=== PATIENT | male | born 1985 | race Caucasian/White ===

== ENCOUNTER → 2020-06-27 08:01 | Outpatient (BNVA) | payer OTHER, SELFPAY | PROVIDERS: Visit Provider Physician Assistant Medical | DX: S62.630A Displaced fracture of distal phalanx of right index finger, initial encounter for closed fracture (principal); W31.9XXA Contact with unspecified machinery, initial encounter | CPT/HCPCS: 73140; 99203 ==

== ENCOUNTER → 2020-06-29 11:18 | Outpatient (BNVA) | payer OTHER, SELFPAY | PROVIDERS: Visit Provider Physician Assistant Medical | DX: S62.630A Displaced fracture of distal phalanx of right index finger, initial encounter for closed fracture (principal); W31.9XXA Contact with unspecified machinery, initial encounter | CPT/HCPCS: 99213 ==

== ENCOUNTER → 2020-07-06 08:50 | Outpatient (BNVA) | payer OTHER, SELFPAY | PROVIDERS: Visit Provider Physician Assistant Medical | DX: S62.630A Displaced fracture of distal phalanx of right index finger, initial encounter for closed fracture (principal); S60.121A Contusion of right index finger with damage to nail, initial encounter; W31.9XXA Contact with unspecified machinery, initial encounter | CPT/HCPCS: 99213 ==

== ENCOUNTER 2020-08-22 12:49 | Outpatient (REF) | payer MEDICAID, SELFPAY ==
[2020-08-23 09:22] LABS: SARS COV2 PCR INHOUSE POSITIVE (Negative)
== END 2020-08-22 12:50 | disposition home or self-care (01) ==
LOC: HO.LAB 12:49
PROVIDERS: Visit Provider Internal Medicine
DX: Z20.822 Contact with and (suspected) exposure to COVID-19 (principal)
CPT/HCPCS: C9803; U0003

== ENCOUNTER 2021-02-04 17:35 | Emergency (ER) | payer OTHER, MEDICAID, SELFPAY ==
--- NOTE | ~2021-02-04 | CT_ITS ---
EXAMINATION: CT HEAD WITHOUT CONTRAST CLINICAL INFORMATION: Head trauma COMPARISON: None. TECHNIQUE: Contiguous axial imaging was performed from the skull base to vertex without intravenous administration of contrast. Coronal and sagittal reformatted images are performed at the CT scanner. [This CT examination was performed using dose optimization techniques as appropriate, variously including the following: *Automated exposure control *Adjustment of mA and/or kV according to patient size (this includes techniques or standardized protocols for targeted exams where dose is matched to indication/reason for exam; i.e. extremities or head) *Use of iterative reconstruction technique] DLP: 710 mGy-cm. FINDINGS: There is no evidence of acute intracranial hemorrhage or territorial infarction. No abnormal mass-effect or midline shift is seen. Mcfarland to white matter differentiation is well preserved. No extra-axial fluid collections are identified. The ventricles are normal in size. There is no abnormal attenuation within the brain parenchyma. There is no osseous abnormality. The mastoid air cells and visualized portions of the paranasal sinuses are well-aerated. CT/CT head/brain wo con IMPRESSION: No acute intracranial pathology.
[2021-02-04 17:41] VITALS: BP 123/66; PULSE 77; RESP 16; TEMP 36.6; O2SAT 98; BMI 27.4
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
== END 2021-02-04 19:29 | disposition home or self-care (01) ==
PROVIDERS: Emergency Provider Internal Medicine
DX: S09.90XA Unspecified injury of head, initial encounter (principal); G44.309 Post-traumatic headache, unspecified, not intractable; M54.5 Low back pain; V43.52XA Car driver injured in collision with other type car in traffic accident, initial encounter; Y93.9 Activity, unspecified; Y92.410 Unspecified street and highway as the place of occurrence of the external cause; Y99.9 Unspecified external cause status; Z79.899 Other long term (current) drug therapy
CPT/HCPCS: 70450; 99283; 99284

== ENCOUNTER 2021-03-13 12:59 | Outpatient (REF) | payer MEDICAID, SELFPAY | END 2021-03-13 13:00 | disposition home or self-care (01) | LOC: HO.LAB 12:59 | PROVIDERS: Visit Provider Internal Medicine | DX: Z20.822 Contact with and (suspected) exposure to COVID-19 (principal) | CPT/HCPCS: C9803; U0003; U0005 ==

== ENCOUNTER 2022-08-16 23:03 | Emergency (ER) | payer MEDICAID, SELFPAY ==
--- NOTE | ~2022-08-16 | XR_ITS ---
EXAMINATION: XR CHEST CLINICAL INFORMATION: Left-sided chest pain COMPARISON: None available. TECHNIQUE: 2 views of the chest were obtained. FINDINGS: Normal symmetric lung volumes. No parenchymal consolidation. No pleural effusion. No pneumothorax. Cardiomediastinal silhouette and pulmonary vascularity are within normal limits. No acute osseous abnormalities. XR/XR chest 2V IMPRESSION: Clear lungs
[2022-08-16 23:22] VITALS: BP 110/58; PULSE 68; RESP 18; TEMP 36.9; O2SAT 98; BMI 30.7
[2022-08-16 23:54] LABS: MANUAL DIFF FLAG NO
[2022-08-16 23:55] LABS: Basophils Absolute Auto 0.1 X10*3/uL (0.0-0.2); Basophils Percent Auto 0.7 % (0-2); Eosinophils Absolute Auto 0.4 X10*3/uL (0.0-0.4); Eosinophils Percent Auto 3.7 % (0-4); Hematocrit 40.2 % (42.0-52.0); Hemoglobin 13.6 g/dl (14.0-18.0); Imm Gran Abs Auto 0.03 X10*3/uL (0.00-0.03); Imm Gran Pct Auto 0.3 % (0.0-0.4); Lymphocytes Absolute Auto 3.6 X10*3/uL (1.2-4.9); Mean Corpuscular HGB Conc 33.8 g/dl (31.0-36.0); Mean Corpuscular Hemoglobin 28.7 pg (27.0-33.0); Mean Corpuscular Volume 84.8 fL (80.0-98.0); Mean Platelet Volume 11.1 fL (9.4-12.4); Monocytes Absolute Auto 1.4 X10*3/uL (0.1-1.2); Monocytes Percent Auto 12.5 % (2-11); Neutrophils Percent Auto 51.8 % (45-73); Platelet Count 231 X10*3/uL (160-400); Red Blood Count 4.74 X10*6/uL (4.60-5.80); Red Cell Distribution Width 11.9 % (11.0-16.0); White Blood Count 11.6 X10*3/uL (4.8-10.8)
[2022-08-16 23:58] VITALS: BP 114/58; PULSE 67; RESP 20; TEMP 36.9; O2SAT 97
--- NOTE | 2022-08-16 23:58 | ECG_ITS ---
Test Reason : CHEST PAIN Blood Pressure : / mmHG Vent. Rate : 070 BPM Atrial Rate : 070 BPM P-R Int : 180 ms QRS Dur : 082 ms QT Int : 378 ms P-R-T Axes : 074 037 021 degrees QTc Int : 408 ms Normal sinus rhythm Normal ECG When compared to the previous EKG of No significant changes seen Referred By: Pete Uriostegui Electronically Signed By:Darrell Renee
--- NOTE | 2022-08-16 23:58 | ED.CHESTPAIN ---
HPI - Chest Pain General Chief Complaint: Chest Pain Stated Complaint: Chest pain Time Seen by Provider: 08/16/22 23:44 Source: patient Mode of arrival: ambulatory Limitations: no limitations History of Present Illness complaint: chest pain Onset (ago): day(s) (1) Timing of current episode: constant Prior episodes: No Onset: during rest Pain location: left chest Pain radiation: none Severity: severe Pain scale (0-10): 9 Quality: sharp Relieving factors: sitting upright Exacerbating factors: other (lying down) Treatment prior to arrival: none Risk Factors Coronary artery disease risk factors: none Thoracic aortic dissection risk factors: none Related Data Previous Rx's Medication Instructions Recorded acetaminophen 500 mg tablet 500 mg PO Q6H PRN pain or fever 02/04/21 (Tylenol Extra Strength) #20 tabs cyclobenzaprine 5 mg tablet 5 mg PO Q8H PRN pain (scale score 02/04/21 7-10) 5 days #14 tabs lidocaine 5 % topical patch 1 patch topical DAILY PRN pain #30 02/04/21 (Lidoderm) ea naproxen 500 mg tablet 500 mg PO BID PRN pain 10 days #20 02/04/21 tabs Allergies Allergy/AdvReac Type Severity Reaction Status Date / Time No Known Allergies Allergy Unverified 02/03/20 19:16 [No Known Allergies*] [facility] Social History Social History Alcohol intake: never Smoked in Last 30 Days: No Use of substances other than those prescribed or required for medical reasons: No Advance Directives: No Advance Directives Information Provided: No Physical Exam Vital Signs: Vital Signs: Last Vital Signs Temp 98.4 F 08/16/22 23:58 Pulse 67 08/16/22 23:58 Resp 20 08/16/22 23:58 BP 114/58 L 08/16/22 23:58 Pulse Ox 97 08/16/22 23:58 O2 Del Method Room Air 08/16/22 23:58 BMI result Body Mass Index 30.7 GEN: Well developed, no acute distress, alert, oriented HEENT: Normocephalic, atraumatic, normal external ears, nose appears normal, no oropharyngeal edema or exudates Eyes: Normal to appearance Neck: Supple, no lymphadenopathy Respiratory: Talks in complete sentences, no respiratory distress, clear to auscultation bilaterally Cardiovascular: Regular rate and rhythm, no murmurs rubs or gallops Abdomen: Soft, nontender, nondistended, no guarding, no rebound Back: No CVA tenderness Extremities: No clubbing cyanosis or edema Neurologic: No focal neurologic deficits, cranial nerves 2-12 intact, strength is 5/5 bilaterally, gait normal Skin: No rash Chest Wall tenderness to palpation left midclavicular line Course Course Course Narrative: 37-year-old male presents with left-sided reproducible chest wall tenderness. This is most likely costochondritis. Patient will have chest x-ray to rule out possible other issues such as pneumothorax, pleural effusion, pneumonia. Will order laboratory analysis. Troponin if negative is highly unlikely to be acute coronary syndrome given the duration of his symptoms. Patient has no PE criteria. There is no evidence of DVT. Other possibilities would include pericarditis myocarditis. Will obtain an EKG to rule out diffuse CO depressions or ST elevations. Will provide patient with Toradol Reevaluation(s) Reevaluation #1: PERC Rule for Pulmonary Embolism from [employer] on 08/17/2022 All calculations should be rechecked by clinician prior to use RESULT SUMMARY: 0 criteria No need for further workup, as <2% chance of PE. If no criteria are positive and clinician?s pre-test probability is <15%, PERC Rule criteria are satisfied. INPUTS: Age >=0 ?> 0 = No HR >=00 ?> 0 = No O? sat on room air ?> 0 = No Unilateral leg swelling ?> 0 = No Hemoptysis ?> 0 = No Recent surgery or trauma ?> 0 = No Prior PE or DVT ?> 0 = No Hormone use ?> 0 = No Time: 00:02 Reevaluation #2: Feeling much better. We discussed all results. All questions were addressed and answered. Time: 00:46 Medical Decision Making Medical Decision Making [facility] Narrative: 37-year-old male presents with left-sided reproducible chest wall tenderness. This is most likely costochondritis. Patient will have chest x-ray to rule out possible other issues such as pneumothorax, pleural effusion, pneumonia. Will order laboratory analysis. Troponin if negative is highly unlikely to be acute coronary syndrome given the duration of his symptoms. Patient has no PE criteria. There is no evidence of DVT. Other possibilities would include pericarditis myocarditis. Will obtain an EKG to rule out diffuse CO depressions or ST elevations. Will provide patient with [place] Differential Diagnosis Differential Diagnoses: The differential diagnosis associated with the presentation includes (Costochondritis, chest wall pain, PE, pericarditis, myocarditis, acute coronary syndrome, angina, GERD, esophageal spasm) Costochondritis Admission/Observation Consideration of admission/observation: Escalation of care including admission/observation considered Lab Data MDM Lab Attestation statement: I reviewed the patient's lab results. 08/16/22 23:42 08/16/22 23:42 Labs: Lab Results 08/16/22 08/16/22 08/16/22 Range/Units 23:42 23:42 23:42 WBC 11.6 H (4.8-10.8) X10*3/uL RBC 4.74 (4.60-5.80) X10*6/uL Hgb 13.6 L (14.0-18.0) g/dl Hct 40.2 L (42.0-52.0) % MCV 84.8 (80.0-98.0) fL MCH 28.7 (27.0-33.0) pg MCHC 33.8 (31.0-36.0) g/dl RDW 11.9 (11.0-16.0) % Plt Count 231 (160-400) X10*3/uL MPV 11.1 (9.4-12.4) fL Immature Gran % (Auto) 0.3 (0.0-0.4) % Neut % (Auto) 51.8 (45-73) % Lymph % (Auto) 31.0 (20-40) % Person % (Auto) 12.5 H (2-11) % Eos % (Auto) 3.7 (0-4) % Baso % (Auto) 0.7 (0-2) % Lymph # (Auto) 3.6 (1.2-4.9) X10*3/uL Person # (Auto) 1.4 H (0.1-1.2) X10*3/uL Eos # (Auto) 0.4 (0.0-0.4) X10*3/uL Baso # (Auto) 0.1 (0.0-0.2) X10*3/uL Abs Immat Gran (auto) 0.03 (0.00-0.03) X10*3/uL Absolute Neuts (auto) 6.0 (2.0-8.3) x10*3/uL Absolute Nucleated RBC 0.000 (0.0-0.012) X10*3/uL Nucleated RBC % (auto) 0.0 (0.0-0.2) /100WBC Sodium 141 (135-145) mmol/L Potassium 3.9 (3.3-5.1) mmol/L Chloride 109 H (96-108) mmol/L Carbon Dioxide 24 (22-29) mmol/L Anion Gap 12 (12-20) BUN 22 H (9-16) mg/dL Creatinine 1.02 (0.5-1.4) mg/dL Estim Creat Clear Calc 94.3 Estimated GFR > 60 Random Glucose 85 (60-115) mg/dL Calcium 8.8 (8.4-10.2) mg/dL Total Bilirubin 0.5 (0.0-1.0) mg/dL AST 22 (5-37) U/L ALT 24 (0-40) U/L Alkaline Phosphatase 91 (39-117) U/L Troponin I High Sens < 3.5 (<3.5-35.0) ng/L Total Protein 6.9 (6.5-8.0) g/dL Albumin 3.9 (3.5-5.0) g/dL Independent Interpretation I performed an independent interpretation of an: EKG and Plain X-Ray (No acute cardiopulmonary disease) Radiology Impression Discussion of test interpretation with radiology: I have reviewed the radiologist's reading. ( XR/XR chest 2V IMPRESSION: Clear lungs Dictated By:Jhno Dave MDSigned By:<Electronically signed by Jhon Dave MD in [place]>08/17/2226) Tests considered The following testing was considered but not selected: CT chest Prescription Management I considered prescription management with: Pain Medication Discharge Plan Discharge Clinical Impression: Costalchondritis Patient Disposition: Home, Self-Care Instructions: Costochondritis (ED) Prescriptions: Continued naproxen 500 mg tablet 500 mg PO BID PRN (Reason: pain) 10 Days Qty: 20 0RF No Action acetaminophen [Tylenol Extra Strength] 500 mg tablet 500 mg PO Q6H PRN (Reason: pain or fever) Qty: 20 0RF lidocaine [Lidoderm] 5 % adhesive patch,medicated 1 patch topical DAILY MDD remove after 12 hours PRN (Reason: pain) Qty: 30 0RF Rx Instructions: leave on most painful area for up to 12 hrs cyclobenzaprine 5 mg tablet 5 mg PO Q8H PRN (Reason: pain (scale score 7-10)) 5 Days Qty: 14 0RF Referrals: Physician,Unknown J [Primary Care Provider] -
--- NOTE | 2022-08-17 00:01 | PC.NURSE ---
aox4, ambulates ind/safely, at bedside c/o L sided chest pain that worsens with movement
[2022-08-17 00:13] LABS: Alanine Aminotransferase 24 U/L (0-40); Albumin Level 3.9 g/dL (3.5-5.0); Alkaline Phosphatase 91 U/L (39-117); Anion Gap 12 (12-20); Aspartate Amino Transferase 22 U/L (5-37); Bilirubin Total 0.5 mg/dL (0.0-1.0); Blood Urea Nitrogen 22 mg/dL (9-16); Calcium 8.8 mg/dL (8.4-10.2); Carbon Dioxide 24 mmol/L (22-29); Chloride 109 mmol/L (96-108); Creatinine Clr Calc Pharmacy 94.3; Estimated Glomerular Filt Rate > 60; Glucose Random 85 mg/dL (60-115); Potassium 3.9 mmol/L (3.3-5.1); Sodium 141 mmol/L (135-145); Total Protein 6.9 g/dL (6.5-8.0)
[2022-08-17 00:18] LABS: Troponin-I High Sensitivity < 3.5 ng/L (<3.5-35.0)
--- NOTE | 2022-08-17 00:51 | PC.NURSE ---
Discharge instructions given/explained to pt all of pt's questions answered ambulates safely/independently, no apparent distress no respiratory distress, no sob, able to speak in full sentences
== END 2022-08-17 00:51 | disposition home or self-care (01) ==
PROVIDERS: Emergency Provider Emergency Medicine
DX: M94.0 Chondrocostal junction syndrome [Tietze] (principal); Z79.899 Other long term (current) drug therapy
CPT/HCPCS: 36415; 71046; 80053; 84484; 85025; 93005; 99283; 99285

== ENCOUNTER 2022-08-19 21:07 | Emergency (ER) | payer MEDICAID, SELFPAY ==
[2022-08-19 21:13] VITALS: BP 144/87; PULSE 84; RESP 18; TEMP 36.5; O2SAT 99; BMI 30.2
--- NOTE | 2022-08-19 21:18 | ECG_ITS ---
Test Reason : dizzness Blood Pressure : / mmHG Vent. Rate : 075 BPM Atrial Rate : 075 BPM P-R Int : 146 ms QRS Dur : 080 ms QT Int : 362 ms P-R-T Axes : 063 030 044 degrees QTc Int : 404 ms Normal sinus rhythm Normal ECG When compared with ECG of 16-AUG-2022 23:10, No significant change was found Referred By: Generic ED Physician Electronically Signed By:Darrell Renee
[2022-08-19 21:51] LABS: Basophils Absolute Auto 0.1 X10*3/uL (0.0-0.2); Basophils Percent Auto 0.5 % (0-2); Eosinophils Absolute Auto 0.1 X10*3/uL (0.0-0.4); Eosinophils Percent Auto 0.7 % (0-4); Hematocrit 42.2 % (42.0-52.0); Hemoglobin 14.3 g/dl (14.0-18.0); Imm Gran Abs Auto 0.06 X10*3/uL (0.00-0.03); Imm Gran Pct Auto 0.4 % (0.0-0.4); Lymphocytes Absolute Auto 2.7 X10*3/uL (1.2-4.9); Lymphocytes Percent Auto 20.1 % (20-40); MANUAL DIFF FLAG NO; Mean Corpuscular HGB Conc 33.9 g/dl (31.0-36.0); Mean Corpuscular Hemoglobin 28.8 pg (27.0-33.0); Mean Corpuscular Volume 85.1 fL (80.0-98.0); Mean Platelet Volume 11.3 fL (9.4-12.4); Monocytes Absolute Auto 1.1 X10*3/uL (0.1-1.2); Monocytes Percent Auto 7.8 % (2-11); Neutrophils Absolute Auto 9.6 x10*3/uL (2.0-8.3); Neutrophils Percent Auto 70.5 % (45-73); Platelet Count 264 X10*3/uL (160-400); Red Blood Count 4.96 X10*6/uL (4.60-5.80); Red Cell Distribution Width 11.9 % (11.0-16.0); White Blood Count 13.7 X10*3/uL (4.8-10.8)
[2022-08-19 22:07] LABS: Alanine Aminotransferase 23 U/L (0-40); Albumin Level 4.4 g/dL (3.5-5.0); Alkaline Phosphatase 92 U/L (39-117); Anion Gap 14 (12-20); Aspartate Amino Transferase 23 U/L (5-37); Bilirubin Total 0.6 mg/dL (0.0-1.0); Blood Urea Nitrogen 14 mg/dL (9-16); Calcium 9.3 mg/dL (8.4-10.2); Carbon Dioxide 25 mmol/L (22-29); Chloride 105 mmol/L (96-108); Creatinine Clr Calc Pharmacy 101.6; Estimated Glomerular Filt Rate > 60; Glucose Random 95 mg/dL (60-115); Sodium 140 mmol/L (135-145); Total Protein 7.5 g/dL (6.5-8.0)
[2022-08-19 22:28] LABS: Influenza A PCR NEGATIVE (Negative); Influenza B PCR NEGATIVE (Negative); Resp Syncy Virus RNA Qual PCR NEGATIVE (Negative); SARS COV2 PCR INHOUSE NEGATIVE (Negative)
[2022-08-19 22:34] LABS: Troponin-I High Sensitivity < 3.5 ng/L (<3.5-35.0)
--- NOTE | 2022-08-19 23:17 | ED_ITS ---
HPI - Dizziness General Chief Complaint: Dizziness Stated Complaint: dizziness Time Seen by Provider: 08/19/22 22:18 Source: patient Mode of arrival: ambulatory Limitations: no limitations History of Present Illness HPI Narrative: Patient came here with sudden onset of dizziness with sense of movement since noon time felt off-balance vomited to 3 times also had chest pain 2 days ago when he was seen here in the hospital after drinking Red Bull no chest pain at this time no palpitation no syncope episode no headache does have tinnitus on the right side dizziness gets worse when turn his head to the right side no headache Related Data Previous Rx's Medication Instructions Recorded acetaminophen 500 mg tablet 500 mg PO Q6H PRN pain or fever 02/04/21 (Tylenol Extra Strength) #20 tabs cyclobenzaprine 5 mg tablet 5 mg PO Q8H PRN pain (scale score 02/04/21 7-10) 5 days #14 tabs lidocaine 5 % topical patch 1 patch topical DAILY PRN pain #30 02/04/21 (Lidoderm) ea naproxen 500 mg tablet 500 mg PO BID PRN pain 10 days #20 02/04/21 tabs meclizine 25 mg tablet 25 mg PO TID PRN dizziness #20 tabs 08/20/22 Allergies Allergy/AdvReac Type Severity Reaction Status Date / Time No Known Allergies Allergy Unverified 02/03/20 19:16 [No Known Allergies*] Review of Systems Review of Systems: Yes all other systems are reviewed and are negative [facility] Social History Social History Alcohol intake: never Advance Directives: No Advance Directives Information Provided: Yes Physical Exam Vital Signs: Vital Signs: Last Vital Signs Temp 97.7 F 08/19/22 21:13 Pulse 84 08/19/22 21:13 Resp 18 08/19/22 21:13 BP 144/87 H 08/19/22 21:13 Pulse Ox 99 08/19/22 21:13 O2 Del Method Room Air 08/19/22 21:13 BMI result Body Mass Index 30.2 Appearance: Alert. Oriented X3. No acute distress. Eyes: PERRLA, No Nystagmus ENT: Pharynx normal. Oral Mucosa moist Neck: Normal inspection. Neck supple. CVS: Normal heart rate and rhythm. Pulses normal. Respiratory: No respiratory distress. Equal air entry bilateral, no wheezing/rales/rhonchi Abdomen: Soft and nontender. Bowel sounds are present, no mass palpable, no CVA tenderness Skin: Skin warm and dry. Normal skin color. Normal skin turgor. Extremities: No lower extremity edema. No calf tenderness Neuro: Oriented X 3. No motor deficit. No sensory deficit.No cerebellar signs , cranial nerves II-XII intact Medications Administered Discontinued Medications Generic Name Dose Route Start Last Admin Trade Name Nolanq PRN Reason Stop Dose Admin Lorazepam 1 mg 08/19/22 23:46 08/20/22 00:11 Lorazepam 1 Mg Tablet PO 08/19/22 23:47 1 mg ONCE ONE Administration Meclizine HCl 50 mg 08/19/22 23:46 08/20/22 00:10 Meclizine Hcl 25 Mg Tablet PO 08/19/22 23:47 50 mg ONCE ONE Administration Medical Decision Making Medical Decision Making [facility] Narrative: Patient clinically with benign positional vertigo no signs of center involvement symptoms improved after Ativan and meclizine patient able to ambulate in the ER in steady gait Lab Data [facility] Lab Attestation statement: I reviewed the patient's lab results. 08/19/22 21:37 08/19/22 21:37 Labs: Lab Results 08/19/22 08/19/22 08/19/22 Range/Units 21:34 21:37 21:37 WBC 13.7 H (4.8-10.8) X10*3/uL RBC 4.96 (4.60-5.80) X10*6/uL Hgb 14.3 (14.0-18.0) g/dl Hct 42.2 (42.0-52.0) % MCV 85.1 (80.0-98.0) fL MCH 28.8 (27.0-33.0) pg MCHC 33.9 (31.0-36.0) g/dl RDW 11.9 (11.0-16.0) % Plt Count 264 (160-400) X10*3/uL MPV 11.3 (9.4-12.4) fL Immature Gran % (Auto) 0.4 (0.0-0.4) % Neut % (Auto) 70.5 (45-73) % Lymph % (Auto) 20.1 (20-40) % [place] % (Auto) 7.8 (2-11) % Eos % (Auto) 0.7 (0-4) % Baso % (Auto) 0.5 (0-2) % Lymph # (Auto) 2.7 (1.2-4.9) X10*3/uL [place] # (Auto) 1.1 (0.1-1.2) X10*3/uL Eos # (Auto) 0.1 (0.0-0.4) X10*3/uL Baso # (Auto) 0.1 (0.0-0.2) X10*3/uL Abs Immat Gran (auto) 0.06 H (0.00-0.03) X10*3/uL Absolute Neuts (auto) 9.6 H (2.0-8.3) x10*3/uL Absolute Nucleated RBC 0.000 (0.0-0.012) X10*3/uL Nucleated RBC % (auto) 0.0 (0.0-0.2) /100WBC Sodium 140 (135-145) mmol/L Potassium 4.0 (3.3-5.1) mmol/L Chloride 105 (96-108) mmol/L Carbon Dioxide 25 (22-29) mmol/L Anion Gap 14 (12-20) BUN 14 (9-16) mg/dL Creatinine 0.94 (0.5-1.4) mg/dL Estim Creat Clear Calc 101.6 Estimated GFR > 60 Random Glucose 95 (60-115) mg/dL Calcium 9.3 (8.4-10.2) mg/dL Total Bilirubin 0.6 (0.0-1.0) mg/dL AST 23 (5-37) U/L ALT 23 (0-40) U/L Alkaline Phosphatase 92 (39-117) U/L Troponin I High Sens (<3.5-35.0) ng/L Total Protein 7.5 (6.5-8.0) g/dL Albumin 4.4 (3.5-5.0) g/dL Influenza Type A (PCR) NEGATIVE (Negative) Influenza Type B (PCR) NEGATIVE (Negative) RSV RNA Qual (PCR) NEGATIVE (Negative) SARS-CoV-2 RNA (RT-PCR) NEGATIVE (Negative) 08/19/22 Range/Units 21:37 WBC (4.8-10.8) X10*3/uL RBC (4.60-5.80) X10*6/uL Hgb (14.0-18.0) g/dl Hct (42.0-52.0) % MCV (80.0-98.0) fL MCH (27.0-33.0) pg MCHC (31.0-36.0) g/dl RDW (11.0-16.0) % Plt Count (160-400) X10*3/uL MPV (9.4-12.4) fL Immature Gran % (Auto) (0.0-0.4) % Neut % (Auto) (45-73) % Lymph % (Auto) (20-40) % [place] % (Auto) (2-11) % Eos % (Auto) (0-4) % Baso % (Auto) (0-2) % Lymph # (Auto) (1.2-4.9) X10*3/uL [place] # (Auto) (0.1-1.2) X10*3/uL Eos # (Auto) (0.0-0.4) X10*3/uL Baso # (Auto) (0.0-0.2) X10*3/uL Abs Immat Gran (auto) (0.00-0.03) X10*3/uL Absolute Neuts (auto) (2.0-8.3) x10*3/uL Absolute Nucleated RBC (0.0-0.012) X10*3/uL Nucleated RBC % (auto) (0.0-0.2) /100WBC Sodium (135-145) mmol/L Potassium (3.3-5.1) mmol/L Chloride (96-108) mmol/L Carbon Dioxide (22-29) mmol/L Anion Gap (12-20) BUN (9-16) mg/dL Creatinine (0.5-1.4) mg/dL Estim Creat Clear Calc Estimated GFR Random Glucose (60-115) mg/dL Calcium (8.4-10.2) mg/dL Total Bilirubin (0.0-1.0) mg/dL AST (5-37) U/L ALT (0-40) U/L Alkaline Phosphatase (39-117) U/L Troponin I High Sens < 3.5 (<3.5-35.0) ng/L Total Protein (6.5-8.0) g/dL Albumin (3.5-5.0) g/dL Influenza Type A (PCR) (Negative) Influenza Type B (PCR) (Negative) RSV RNA Qual (PCR) (Negative) SARS-CoV-2 RNA (RT-PCR) (Negative) Independent Interpretation I performed an independent interpretation of an: EKG Interpretation: Normal sinus rhythm heart rate 75 beats per minute normal intervals normal axis impression normal EKG Discharge Plan Discharge Clinical Impression: Benign paroxysmal positional vertigo Patient Disposition: Home, Self-Care Instructions: Benign Paroxysmal Positional Vertigo (ED) Additional Instructions: Care and cautions as advised Medicine for dizziness as prescribed Follow up with PCP as needed Prescriptions: New meclizine 25 mg tablet 25 mg PO TID PRN (Reason: dizziness) Qty: 20 0RF No Action acetaminophen [Tylenol Extra Strength] 500 mg tablet 500 mg PO Q6H PRN (Reason: pain or fever) Qty: 20 0RF lidocaine [Lidoderm] 5 % adhesive patch,medicated 1 patch topical DAILY MDD remove after 12 hours PRN (Reason: pain) Qty: 30 0RF Rx Instructions: leave on most painful area for up to 12 hrs naproxen 500 mg tablet 500 mg PO BID PRN (Reason: pain) 10 Days Qty: 20 0RF cyclobenzaprine 5 mg tablet 5 mg PO Q8H PRN (Reason: pain (scale score 7-10)) 5 Days Qty: 14 0RF Stand Alone Forms: Work/School Release
[2022-08-20] MEDS: Meclizine HCl 25 MG TABLET 50 MG PO (00:10)
[2022-08-20] MEDS: LORazepam 1 MG TABLET PO (00:11)
[2022-08-20 00:48] VITALS: BP 115/80; PULSE 69; RESP 16; TEMP 36.8; O2SAT 98
--- NOTE | 2022-08-20 00:53 | PC.NURSE ---
Pt. reports relief with the meclizine.
== END 2022-08-20 00:54 | disposition home or self-care (01) ==
PROVIDERS: Emergency Provider Internal Medicine
DX: H81.13 Benign paroxysmal vertigo, bilateral (principal); Z20.822 Contact with and (suspected) exposure to COVID-19; Z20.828 Contact with and (suspected) exposure to other viral communicable diseases; Z79.899 Other long term (current) drug therapy
CPT/HCPCS: 0241U; 80053; 84484; 85025; 93005; 99283; 99284

== ENCOUNTER 2023-10-25 13:08 | Emergency (ER) | payer MEDICAID, SELFPAY ==
[2023-10-25 14:02] VITALS: BP 123/69; PULSE 72; RESP 16; TEMP 36.6; O2SAT 97; BMI 27.5
--- NOTE | 2023-10-25 14:03 | ED_ITS ---
HPI - Back Pain/Injury General Chief Complaint: Back Pain/Injury Stated Complaint: back pain Time Seen by Provider: 10/25/23 14:07 Source: patient Mode of arrival: ambulatory Limitations: no limitations History of Present Illness ED Provider: Dick Soto PA-C HPI Narrative: 38-year-old [place] Islander-speaking male with no medical history presents to the ER for evaluation of diffuse lower back pain for the last 1 month. Patient states he does heavy lifting at work which makes the pain worse. Pain is constant, worse with movement. It does not radiate. No urinary symptoms or trouble having bowel movements. No numbness or weakness in his legs. He has not been taking any medications for the pain. MD elicited complaint: back pain Onset (ago): month(s) (1) Timing: progressively worsening Similar Symptoms Previously: Yes Quality: aching and spasming Location: right lower back and left lower back Radiation: none Exacerbating factors: movement Relieving factors: immobilization and supine Context: while lifting, turning/twisting and bending Associated symptoms: denies other symptoms Work related injury: Yes Related Data Previous Rx's ?Medication ?Instructions ?Recorded acetaminophen 500 mg tablet 500 mg PO Q6H PRN pain or fever 02/04/21 (Tylenol Extra Strength) #20 tabs cyclobenzaprine 5 mg tablet 5 mg PO Q8H PRN pain (scale score 02/04/21 7-10) 5 days #14 tabs lidocaine 5 % topical patch 1 patch topical DAILY PRN pain #30 02/04/21 (Lidoderm) ea naproxen 500 mg tablet 500 mg PO BID PRN pain 10 days #20 02/04/21 tabs meclizine 25 mg tablet 25 mg PO TID PRN dizziness #20 tabs 08/20/22 cyclobenzaprine 10 mg tablet 10 mg PO TID PRN muscle spasm #14 10/25/23 tabs ibuprofen 600 mg tablet 600 mg PO Q8H PRN pain #14 tabs 10/25/23 lidocaine 5 % topical patch 1 patch topical DAILY #15 ea 10/25/23 Allergies Allergy/AdvReac Type Severity Reaction Status Date / Time No Known Allergies Allergy Verified 10/25/23 14:06 [No Known Allergies*] Review of Systems Review of Systems: Yes all other systems are reviewed and are negative [facility] Social History Social History (System 08/29/23 @ 14:26 by Silva Joseph) Alcohol intake: never Advance Directives: No Advance Directives Information Provided: No Do you have a plan to hurt others: No Plan Physical Exam Vital Signs: Vital Signs: Last Vital Signs Temp 97.8 F 10/25/23 14:02 Pulse 72 10/25/23 14:02 Resp 16 10/25/23 14:02 BP 123/69 10/25/23 14:02 Pulse Ox 97 10/25/23 14:02 O2 Del Method Room Air 10/25/23 14:02 BMI result Body Mass Index 27.5 Appearance: Alert. Oriented X3. No acute distress. HEENT: normal inspection CVS: Normal heart rate and rhythm. Pulses normal. Respiratory: No respiratory distress. Skin: Skin warm and dry. Normal skin color. Normal skin turgor. No rashes. Back: Normal inspection. Soft tissue tenderness to the lower lumbar area bilaterally with palpable muscle spasm. No midline tenderness of the lumbar or thoracic spine. Normal spinal flexion, pain with flexion. Extremities: normal inspection x4, no joint swelling Neuro: Oriented X 3. No motor deficit. No sensory deficit. Steady gait Course Course Course Narrative: This is a Rapid Medical Examination (RME) performed by Dick Soto PA-C in triage. Full HPI, ROS, assessment and treatment plan per primary provider in the Main ED. Plan: Medical Decision Making Medical Decision Making [facility] Narrative: 38-year-old male presents to the ER for evaluation of low back pain for last 1 month. No red flag symptoms of low back pain. Nontender midline spine on exam. He has palpable muscle spasm. His exam and clinical presentation are consistent with soft tissue spasm/muscle spasm. Will try course of NSAIDs, muscle relaxers, Lidoderm. Patient counseled on nature of low back pain. Advis ed to follow up with his PCP for possible physical therapy consult. Stable for discharge home Differential Diagnosis Differential Diagnoses: The differential diagnosis associated with the presentation includes Inflammatory disorders, malignancy, trauma, osteoporosis, nerve root compression, radiculopathy, plexopathy, degenerative disc disease, disc herniation, spinal stenosis, sacroiliac joint dysfunction, facet joint injury, and less likely infection?like abscess or diskitis External Record Review External record reviewed: Outpatient record and Prior outpatient labs Tests considered The following testing was considered but not selected: Considered x-ray lumbar spine however he has no midline tenderness, no trauma Prescription Management I considered prescription management with: Pain Medication Critical Care Time Critical Care Time Critical Care Time: No Discharge Plan Discharge Clinical Impression: Acute lumbar myofascial strain Qualifiers: Encounter type: initial encounter Qualified Code(s): S39.012A - Strain of muscle, fascia and tendon of lower back, initial encounter Patient Disposition: Home, Self-Care Instructions: Low Back Strain (ED), Lower Back Exercises (ED) Additional Instructions: Your pain is most likely due to muscle strain and spasm. No bending, lifting or twisting. Use ice several times per day for 20 minutes at a time for the next 48 hours and then change to heat. Take medications as prescribed to help with pain and discomfort. Follow up with your Primary Care Doctor this week. If your pain worsens, if you develop new numbness, tingling, weakness, loss of function or incontinence call 911 or come back to the ER right away for evaluation. Prescriptions: New cyclobenzaprine 10 mg tablet 10 mg PO TID PRN (Reason: muscle spasm) Qty: 14 0RF ibuprofen 600 mg tablet 600 mg PO Q8H PRN (Reason: pain) Qty: 14 0RF lidocaine 5 % adhesive patch,medicated 1 patch topical DAILY Qty: 15 0RF Rx Instructions: leave on most painful area for up to 12 hrs No Action acetaminophen [Tylenol Extra Strength] 500 mg tablet 500 mg PO Q6H PRN (Reason: pain or fever) Qty: 20 0RF lidocaine [Lidoderm] 5 % adhesive patch,medicated 1 patch topical DAILY MDD remove after 12 hours PRN (Reason: pain) Qty: 30 0RF Rx Instructions: leave on most painful area for up to 12 hrs naproxen 500 mg tablet 500 mg PO BID PRN (Reason: pain) 10 Days Qty: 20 0RF cyclobenzaprine 5 mg tablet 5 mg PO Q8H PRN (Reason: pain (scale score 7-10)) 5 Days Qty: 14 0RF meclizine 25 mg tablet 25 mg PO TID PRN (Reason: dizziness) Qty: 20 0RF Stand Alone Forms: Work/School Release Discharge Date/Time: 10/25/23 14:13 Print Language: [place]
== END 2023-10-25 14:13 | disposition home or self-care (01) ==
LOC: HO.ED 14:12
PROVIDERS: Emergency Provider Emergency Medicine
DX: S39.012A Strain of muscle, fascia and tendon of lower back, initial encounter (principal); X50.0XXA Overexertion from strenuous movement or load, initial encounter; Y93.89 Activity, other specified; Y92.9 Unspecified place or not applicable; Y99.0 Civilian activity done for income or pay
CPT/HCPCS: 99281; 99283

== ENCOUNTER 2024-09-25 22:50 | Emergency (ER) | payer MEDICAID, SELFPAY ==
[2024-09-25 23:10] VITALS: BP 116/78; PULSE 81; RESP 18; TEMP 36.9; O2SAT 96; BMI 32.6
--- NOTE | 2024-09-26 02:46 | ED.GENADULT ---
HPI - General Adult General Chief complaint: Neck Pain/Injury Stated complaint: neck/right arm pain Time Seen by Provider: 09/26/24 02:32 Source: patient Limitations: language barrier History of Present Illness ED Provider: Deirdre Hancock PA-C HPI narrative: 39-year-old male presents with right-sided neck pain x 1 week. Patient states he has developed right lateral neck discomfort that radiates down the right upper extremity to the point of the elbow. Associated paresthesias at times. Patient denies weakness of right upper extremity. Denies headache, visual changes. Patient states he exercises on a regular basis, primarily weight lifting. Related Data Previous Rx's ?Medication ?Instructions ?Recorded acetaminophen 500 mg tablet 500 mg PO Q6H PRN pain or fever 02/04/21 (Tylenol Extra Strength) #20 tabs cyclobenzaprine 5 mg tablet 5 mg PO Q8H PRN pain (scale score 02/04/21 7-10) 5 days #14 tabs lidocaine 5 % topical patch 1 patch topical DAILY PRN pain #30 02/04/21 (Lidoderm) ea naproxen 500 mg tablet 500 mg PO BID PRN pain 10 days #20 02/04/21 tabs meclizine 25 mg tablet 25 mg PO TID PRN dizziness #20 tabs 08/20/22 cyclobenzaprine 10 mg tablet 10 mg PO TID PRN muscle spasm #14 10/25/23 tabs ibuprofen 600 mg tablet 600 mg PO Q8H PRN pain #14 tabs 10/25/23 lidocaine 5 % topical patch 1 patch topical DAILY #15 ea 10/25/23 ketorolac 10 mg tablet 10 mg PO Q6H PRN pain #20 tabs 09/26/24 methocarbamol 750 mg tablet 1,500 mg (2 x 750 mg) PO Q8H PRN 09/26/24 pain, moderate #20 tabs methylprednisolone 4 mg tablets in 4 mg PO QAM #21 ea 09/26/24 a dose pack (Medrol (Crow)) Allergies Allergy/AdvReac Type Severity Reaction Status Date / Time No Known Allergies Allergy Verified 09/25/24 23:12 [No Known Allergies*] Review of Systems Review of Systems: Yes all other systems are reviewed and are negative Constitutional: Constitutional: Denies fatigue, Denies fever(s) and Denies headache(s) Eyes: Eyes: Denies change in vision ENT: Denies dizziness, Denies headache(s) and Reports neck pain Cardiovascular: Cardiovascular: Denies chest pain and Denies dyspnea Respiratory: Respiratory: Denies dyspnea Gastrointestinal: Gastrointestinal: Denies nausea and Denies vomiting Musculoskeletal: Musculoskeletal: Reports arthralgias, Denies joint swelling, Denies muscle weakness, Reports neck pain, Denies numbness, Reports radiating pain into limb and Reports tingling Neurologic: Denies dizziness, Denies headache(s), Denies numbness and Reports tingling Endocrine: Endocrine: Denies fatigue [facility] Social History Social History (System 08/29/23 @ 14:26 by Silva Joseph) Alcohol intake: never Advance Directives: No Advance Directives Information Provided: Yes Do you have a plan to hurt others: No Plan Physical Exam ED Vital Signs: Vital Signs - 24 hr 09/25/24 23:10 Temperature 98.4 F Pulse Rate 81 Respiratory Rate 18 Blood Pressure 116/78 Pulse Oximetry 96 Oxygen Delivery Method Room Air BMI result Body Mass Index 32.6 Const Other: Alert well-appearing Orientation/consciousness: patient oriented x3 Neck Neck: Yes full ROM Resp Effort & Inspection: normal respiratory effort Cardio Other: Normal peripheral perfusion Skin Other: Warm dry no rash Neuro General: patient oriented x3, gait normal, no focal motor deficits and CN's II-XI intact bilaterally Extrem Other: No pain and bicipital groove, pain lateral elbow with resisted pronation Psych Other: Cooperative Medical Decision Making Medical Decision Making MDM Narrative: 39-year-old male presents with right-sided neck pain x 1 week. Patient states he has developed right lateral neck discomfort that radiates down the right upper extremity to the point of the elbow. Associated paresthesias at times. Patient denies weakness of right upper extremity. Denies headache, visual changes. Patient states he exercises on a regular basis, primarily weight lifting. Problem: Repetitive activity History: Per patient I have considered the following differential diagnoses: Fracture, dislocation, VAD, cervical radiculopathy, biceps tendinitis, epicondylitis Plan: Patient having cervical radiculopathy, also having symptoms of epicondylitis. We will send with home care instructions for both conditions. This is not fracture or dislocation, there was no actual trauma, and he has full range of motion of the extremity. Thought about VAD, the patient does weight lift on a regular basis, however he has had symptoms for 7 days, there was not acute onset of symptoms, he is neurologically intact without a headache dizziness or nausea. Discharge Plan Discharge Clinical Impression: Cervical radiculopathy, Epicondylitis, lateral Patient Disposition: Home, Self-Care Instructions: Tennis Elbow (ED), Cervical Radiculopathy (ED) Additional Instructions: You are being treated for 2 conditions, cervical radiculopathy and tennis elbow. See home care instructions. For the tennis elbow, you should purchase a compression band to wear above the elbow joint, this will offer stability, help with the pain and inflammation. Take the Medrol Dosepak as directed this is an anti-inflammatory take it in the morning. Take the ketorolac as needed, this is also an anti-inflammatory, take it with food. Use the methocarbamol as needed for further pain, this is a muscle relaxant, do not drive or operate machinery while taking this medication as it will cause drowsiness. Follow up with your primary care provider as needed. Prescriptions: New ketorolac 10 mg tablet 10 mg PO Q6H PRN (Reason: pain) Qty: 20 0RF Rx Instructions: maximum total duration of 5 days from all oral, intranasal, or parenteral formulations. The patient received an intramuscular dose of Toradol here in the emergency room. methylprednisolone [Medrol (Crow)] 4 mg tablets,dose pack 4 mg PO QAM Qty: 21 0RF Rx Instructions: Take per package instructions methocarbamol 750 mg tablet 1,500 mg PO Q8H PRN (Reason: pain, moderate) Qty: 20 0RF No Action acetaminophen [Tylenol Extra Strength] 500 mg tablet 500 mg PO Q6H PRN (Reason: pain or fever) Qty: 20 0RF lidocaine [Lidoderm] 5 % adhesive patch,medicated 1 patch topical DAILY MDD remove after 12 hours PRN (Reason: pain) Qty: 30 0RF Rx Instructions: leave on most painful area for up to 12 hrs naproxen 500 mg tablet 500 mg PO BID PRN (Reason: pain) 10 Days Qty: 20 0RF cyclobenzaprine 5 mg tablet 5 mg PO Q8H PRN (Reason: pain (scale score 7-10)) 5 Days Qty: 14 0RF meclizine 25 mg tablet 25 mg PO TID PRN (Reason: dizziness) Qty: 20 0RF cyclobenzaprine 10 mg tablet 10 mg PO TID PRN (Reason: muscle spasm) Qty: 14 0RF ibuprofen 600 mg tablet 600 mg PO Q8H PRN (Reason: pain) Qty: 14 0RF lidocaine 5 % adhesive patch,medicated 1 patch topical DAILY Qty: 15 0RF Rx Instructions: leave on most painful area for up to 12 hrs Print Language: Malagasy
[2024-09-26] MEDS: Ketorolac Tromethamine 15 MG/ML VIAL IM (04:01)
[2024-09-26] MEDS: methocarbamoL 750 MG TABLET 1500 MG PO (04:01)
[2024-09-26 04:06] VITALS: BP 142/71; PULSE 73; RESP 16; TEMP 36.6; O2SAT 97
[2024-09-26 04:08] VITALS: BP 142/71; PULSE 73; RESP 16; TEMP 36.6; O2SAT 97
== END 2024-09-26 04:11 | disposition home or self-care (01) ==
PROVIDERS: Emergency Provider Internal Medicine
DX: M54.12 Radiculopathy, cervical region (principal); M77.11 Lateral epicondylitis, right elbow; M54.2 Cervicalgia
CPT/HCPCS: 96372; 99284; J1885

== ENCOUNTER 2025-02-15 08:46 | Outpatient (REF) | payer MEDICAID, SELFPAY ==
--- OUTSIDE RECORDS SUMMARY | 2025-02-14 10:45 | XMS_ITS | Encounter Summary ---
Author Organization [employer] Address [address] [place] [address] Care Team Providers Care Straightening Roll Operator Name Role Phone Tammy Concepcion [facility] Primary Care Provider [phone] Reason for Referral * Consultation (Routine) - Authorized Specialty Diagnoses / Procedures Referred By Contac t Referred To Contact Cardiology Diagnoses Palpitations Dyspnea on exertion Shakira Kitchen MD [address] [place] [address] Phone: tel: fax: [facility] [address] [place] [address] Phone: tel: fax: Referral ID Status Reason Start Date Expiration Date Visits Requested Visits Authorized [id number] Authorized Specialty Services Required 02/14/2025 02/14/2026 1 1 * Consultation (Routine) - Authorized Specialty Diagnoses / Procedures Referred By Contac t Referred To Contact Nutrition Diagnoses Class 1 obesity due to excess calories without serious comorbidity with body mass index (BMI) of 33.0 to 33.9 in adult Shakira Kitchen MD [address] [place] [address] Phone: tel: fax: Referral ID Status Reason Start Date Expiration Date Visits Requested Visits Authorized [id number] Authorized Specialty Services Required 02/14/2025 02/14/2026 1 1 * Hospital - Outpatient (Routine) - Authorized Specialty Diagnoses / Procedures Referred By Contac t Referred To Contact Diagnoses Apneic episode Hypersomnia Procedures Home sleep test Shakira Kitchen MD [address] [place] [address] Phone: tel: fax: [address] Phone: tel: fax: Referral ID Status Reason Start Date Expiration Date V isits Requested Visits Authorized [id number] Authorized 02/14/2025 02/14/2026 1 1 Encounter Details Date Type Department Care Team (Late st Contact Info) Description 02/14/2025 10:45 AM EDT Office Visit [facility] [address] [place] [address] Shakira Kitchen MD [address] [place] [address] Other fatigue (Primary Dx); Constipation, unspecified constipation type; Erectile dysfunction, unspecified erectile dysfunction type; Palpitations; Dyspnea on exertion; Apneic episode; Hypersomnia; Class 1 obesity due to excess calories without serious comorbidity with body mass index (BMI) of 33.0 to 33.9 in adult; Dietary counseling; Exercise counseling Social History Tobacco Use Types Packs/Day Years Used Date Smoking Tobacco: Never Smokeless Tobacco: Never Alcohol Use Standard Drinks/Week Comments Never 0 (1 standard drink = 0.6 oz pur e alcohol) Depression Answer Date Recorded Patient Health Questionnaire-9 Score 0 08/27/2023 Patient Health Questionnaire-9 Score 0 08/27/2023 Last PHQ-9: Questionnaire Data Not on file 0 08/27/2023 Housing Stability Answer Date Recorded What is your housing situation today? I have sarah headley 08/27/[address] you li ve. Do you have problems with any of the following? None of the above 08/27/2023 Food Insecurity Answer Date Recorded Within the past 12 months, y ou worried that your food would run out before you got money to buy more: Never True 08/18/2023 Within the past 12 months,th e food you bought just didn't last and you didn't have enough money to get more: Never True 05/2023 Transportation Answer Date Recorded In the past 12 months, has l ack of transportation kept you from medical appts, meetings, work or from getting things needed for daily living? No 08/18/2023 Utilities Answer Date Recorded In the past 12 months, has t he electric, gas, oil or water company threatened to shut off services in your home? No 08/27/2023 Depression Answer Date Recorded Patient Health Questionnaire-2 Score 0 08/27/2023 Sex and Gender Information Value Date Recorded Sex Assigned at Male 03/18/2022 10:30 AM EDT Legal Sex Male 10:30 AM EDT Gender Identity Male 03/18/2022 10:30 AM EDT Sexual Orientation Straight 03/18/2022 10 :30 AM EDT documented as of this encounter Last Filed Vital Signs Vital Sign Reading Time Taken Comments Blood Pressure 126/82 02/14/2025 10:43 AM EDT Pulse 84 02/14/2025 10:43 AM EDT Temperature 36.4 C (97.6 F) 02/14/2025 10:43 AM EDT Respiratory Rate 23 02/14/2025 10:4 3 AM EDT Oxygen Saturation 97% 02/14/2025 10: 43 AM EDT Inhaled Oxygen Concentration - - Weight 88.8 kg (195 lb 12.8 oz) 025 10:43 AM EDT Height 162.6 cm (5' 4 ) 02/14/2025 10:4 3 AM EDT Body Mass Index 33.61 02/14/2025 10:43 AM EDT documented in this encounter Progress Notes * Shakira Anaya MD - 02/14/2025 10:45 AM EDT SUBJECTIVE: See Canas is a 39 y.o. year old male who presents for acute visit . Acute Concerns: Patient reports that for the past 8 months he has been feeling increasingly fatigue, reports he hasbeen having dyspnea on exertion, he is also having apneic episodes at night and has hypersomnia during the day, patient also reports he feels heavy he has been trying to lose weight but always gains it again he tells me he tried diet and exercise and is not working, he is also has been having constipation reports has infrequently using the toilets and having hard stools, patient also tells me he has been having erectile dysfunction. He tells me he lost his job 2 weeks ago because deprecatory work he will work close and thinks this has been triggering to gain more weight. He is also has been having palpitations and episodes of chest pain, today he denies any palpitations or chest pain Social History Social History Narrative Current living environment: Lives with and 3 kids Children: 17, 12, 4 Employment/Education: Works at [employer] Tobacco Use: None Alcohol Use: None Marijuana Use: None Other drug use: None Reproductive Health: Sexually Active: Yes Partners are: [employer] Planning a in the next 12 months: No Problem List[1] Vitamin D deficiency Healthcare maintenance Family history of colon cancer Other fatigue Constipation Erectile dysfunction Palpitations Dyspnea on exertion Apneic episode Hypersomnia Class 1 obesity due to excess calories without serious comorbidity with body mass index (BMI) of 33.0 to 33.9 in adult Family History[2] Review of Systems Constitutional: Positive for fatigue and unexpected weight change. Negative for activity change, appetite change, chills, diaphoresis and fever. HENT: Negative. Respiratory: Positive for apnea and shortness of breath. Negative for cough, choking, chest tightness, wheezing and stridor. Cardiovascular: Positive for chest pain and palpitations. Negative for leg swelling. Gastrointestinal: Positive for abdominal distention and constipation. Negative for abdominal pain, anal bleeding, blood in stool, diarrhea, nausea, rectal pain and vomiting. Genitourinary: Erectile dysfunction Psychiatric/Behavioral: The patient is nervous/anxious. OBJECTIVE: Vitals: 02/14/25 1043 BP: 126/82 BP Location: Left arm Patient Position: Sitting BP Cuff Size: Large adult Pulse: 84 Resp: 23 Temp: 97.6 ??F (36.4 ??C) TempSrc: Temporal SpO2: 97% Weight: 195 lb 12.8 oz (88.8 kg) Height: 5' 4 (1.626 m) Physical Exam Constitutional: Appearance: Normal appearance. Cardiovascular: Rate and Rhythm: Normal rate and regular rhythm. Pulmonary: Effort: Pulmonary effort is normal. Breath sounds: Normal breath sounds. Abdominal: Palpations: Abdomen is soft. Tenderness: There is no abdominal tenderness. Musculoskeletal: Right lower leg: No edema. Left lower leg: No edema. Neurological: Mental Status: He is alert. Follow Up: No follow-ups on file. Medications Ordered Prior to Encounter[3] Problem List Items Addressed This Visit Other fatigue - Primary Blood work ordered patient will be contacted with results Follow-up with PCP Relevant Orders CBC auto differential Comprehensive Metabolic Panel Hemoglobin A1c HIV-1/2 Antigen and Antibodies, Fourth Generation, with Reflexes Hepatitis C Antibody with Reflex to HCV, RNA, Quantitative, Real-Time PCR Lipid Panel, Standard Vitamin D, 25-Hydroxy, Total, Immunoassay TSH with Reflex to Free T4 Testosterone, Free (Dialysis) And Total, MS RPR (Monitor) with Reflex to Titer Vitamin B12 (Cobalamin) and Folate Panel, Serum Constipation Counseling about adding more water and fiber to his diet increase walks done today I prescribed for him Colace and MiraLAX TSH will be checked with labs Relevant Medications docusate sodium (Colace) 100 MG capsule polyethylene glycol, PEG, 3350 (MiraLax) 17 GM/SCOOP powder Erectile dysfunction Labs will be checked today including testosterone he will be contacted with results Follow-up with PCP Palpitations TSH will be checked with labs Cardiology referral Follow-up with PCP Relevant Orders Referral to Cardiology Dyspnea on exertion I ordered today sleep studies, labs and refer him to cardiology Patient will be contacted with results as soon as I get them Follow-up with PCP Relevant Orders Referral to Cardiology Apneic episode Sleep study is ordered today Relevant Orders Home sleep test Hypersomnia Home sleep study is ordered today Relevant Orders Home sleep test Class 1 obesity due to excess calories without serious comorbidity with body mass index (BMI) of 33.0 to 33.9 in adult Counseling about healthy diet and exercise done today Labs ordered today including TSH CMP and A1c Tal[employer] Sourcer referral done today Follow-up with PCP Relevant Orders Referral to Nutrition Services, Internal Other Visit Diagnoses Dietary counseling Exercise counseling [1] Patient Active Problem List Diagnosis Vitamin D deficiency Healthcare maintenance Family history of colon cancer Other fatigue Constipation Erectile dysfunction Palpitations Dyspnea on exertion Apneic episode Hypersomnia Class 1 obesity due to excess calories without serious comorbidity with body mass index (BMI) of 33.0 to 33.9 in adult [2] Family History Problem Relation Name Age of Onset Hypertension Mother Colon cancer Father 60 Colon cancer Father's Brother 60 Colon cancer Paternal Grandfather 60 [3] Current Outpatient Medications on File Prior to Visit Medication Sig Dispense Refill Blood Pressure kit Use as directed 1 kit 0 cyclobenzaprine (Flexeril) 10 MG tablet Take 1 tablet (10 mg) by mouth if needed in the morning, atnoon, and at bedtime for muscle spasms for up to [address] with medicaion 20 tablet 0 fluticasone (Flonase) 50 MCG/ACT nasal spray Administer 2 sprays into each nostril in the morning. Shake gently. Before first use, prime pump. After use, clean tip and replace cap. 16 g 2 No current facility-administered medications on file prior to visit. documented in this encounter Miscellaneous Notes * Assessment & Plan Note - Shakira Anaya MD - 02/14/2025 11:22 AM EDT Associated Problem(s): Other fatigue Blood work ordered patient will be contacted with results Follow-up with PCP * Assessment & Plan Note - Shakira Anaya MD - 02/14/2025 11:22 AM EDT Associated Problem(s): Hypersomnia Home sleep study is ordered today * Assessment & Plan Note - Shakira Anaya MD - 02/14/2025 11:22 AM EDT Associated Problem(s): Apneic episode Sleep study is ordered today * Assessment & Plan Note - Shakira Anaya MD - 02/14/2025 11:22 AM EDT Associated Problem(s): Erectile dysfunction Labs will be checked today including testosterone he will be contacted with results Follow-up with PCP * Assessment & Plan Note - Shakira Anaya MD - 02/14/2025 11:21 AM EDT Associated Problem(s): Constipation Counseling about adding more water and fiber to his diet increase walks done today I prescribed for him Colace and MiraLAX TSH will be checked with labs * Assessment & Plan Note - Shakira Anaya MD - 02/14/2025 11:21 AM EDT Associated Problem(s): Class 1 obesity due to excess calories without serious comorbidity with bodymass index (BMI) of 33.0 to 33.9 in adult Counseling about healthy diet and exercise done today Labs ordered today including TSH CMP and A1c [employer]ourcer referral done today Follow-up with PCP * Assessment & Plan Note - Shakira Anaya MD - 02/14/2025 11:20 AM EDT Associated Problem(s): Palpitations TSH will be checked with labs Cardiology referral Follow-up with PCP * Assessment & Plan Note - Shakira Anaya MD - 02/14/2025 11:20 AM EDT Associated Problem(s): Dyspnea on exertion I ordered today sleep studies, labs and refer him to cardiology Patient will be contacted with results as soon as I get them Follow-up with PCP documented in this encounter Plan of Treatment Scheduled Orders Name Type Priority Associated Diagnoses Orde r Schedule CBC auto differential Lab Routine Other fatigue Expected: 02/14/2025 (Approximate), Expires: 02/14/2026 Comprehensive Metabolic Panel Lab Routine Other fatigue Expected: 02/14/2025 (Approximate), Expires: 02/14/2026 Hemoglobin A1c Lab Routine Other fatigue Expected: 02/14/2025 (Approximate), Expires: 02/14/2026 HIV-1/2 Antigen and Antibodies, Fourth Generation, with Reflexes Lab Routine Other fatigue Expected: 02/14/2025 (Approximate), Expires: 02/14/2026 Hepatitis C Antibody with Reflex to HCV, RNA, Quantitative, Real-Time PCR Lab Routine Other fatigue Expected: 02/14/2025, Expires: 02/14/2026 Lipid Panel, Standard Lab Routine Other fatigue Expected: 02/14/2025 (Approximate), Expires: 02/14/2026 Vitamin D, 25-Hydroxy, Total, Immunoassay Lab Routine Other fatigue Expected: 02/14/2025 (Approximate), Expires: 02/14/2026 TSH with Reflex to Free T4 Lab Routine Other fatigue Expected: 02/14/2025 (Approximate), Expires: 02/14/2026 Testosterone, Free (Dialysis) And Total, MS Lab Routine Other fatigue Expected: 02/14/2025 (Approximate), Expires: 02/14/2026 RPR (Monitor) with Reflex to Titer Lab Routine Other fatigue Expected: 02/14/2025, Expires: 02/14/2026 Vitamin B12 (Cobalamin) and Folate Panel, Serum Lab Routine Other fatigue Expected: 02/14/2025, Expires: 02/14/2026 Home sleep test Sleep Center Routine Apneic episode Hypersomnia Expected: 02/14/2025 (Approximate), Expires: 02/14/2026 Scheduled Referrals Name Type Priority Associated Diagnoses Orde r Schedule Referral to Nutrition Services, Internal Outpatient Referral Routine Class 1 obesity due to excess calories without serious comorbidity with body mass index (BMI) of 33.0 to 33.9 in adult Expected: 02/14/2025 (Approximate), Expires: 02/14/2026 Referral to Cardiology Outpatient Referral Routine Palpitations Dyspnea on exertion Expected: 02/14/2025 (Approximate), Expires: 02/14/2026 documented as of this encounter Visit Diagnoses Diagnosis Other fatigue- Primary Constipation, unspecified constipation type Erectile dysfunction, unspecified erectile dysfunction type Palpitations Dyspnea on exertion Other dyspnea and respiratory abnormality Apneic episode Hypersomnia Hypersomnia, unspecified Class 1 obesity due to excess calories without serious comorbidity with body mass index (BMI) of 33.0 to 33.9 in adult Dietary counseling Dietary surveillance and counseling Exercise counseling documented in this encounter Additional Health Concerns Assessment Noted Time PHQ-9 Depression Total Score: 0 08/27/19 24 2:09 PM EDT documented as of this encounter Care Teams Straightening Roll Operator Relationship Specialty Start Date End Date Tammy Concepcion FNP [address] [place] [phone] PCP - General Family Medicine 10/31/21 documented as of this encounter
--- OUTSIDE RECORDS SUMMARY | 2025-02-15 09:17 | XMS_ITS | Clinical Summary ---
Author Organization [employer] Address [address] [facility] [address] [place] [address] Care Team Providers Care Director Of Land Acquisition Name Role Phone Tammy Concepcion [facility] Primary Care Provider [phone] Allergies No known active allergies Medications fluticasone (Flonase) 50 MCG/ACT nasal sprayIndications: Nasal congestion Administer 2 sprays into each nostril in the morning. Shake gently. Before first use, prime pump. After use, clean tip and replace cap. 16 g 2 3 Active Blood Pressure kitIndications:Di zziness Use as directed 1 kit 3 Active cyclobenzaprine (Flexeril) 10 MG tabletIndications :Trapezius strain, right, initial encounter Take 1 tablet (10 mg) by mouth if needed in the morning, at noon, and at bedtime for muscle spasms for up to [address] with medicaion 20 tablet 5 Active docusate sodium (Colace) 100 MG capsuleIndication s:Constipation, unspecified constipation type Take 1 capsule (100 mg) by mouth 2 times daily for 10 days. 20 capsule 5 02/25/20 25 Active polyethylene glycol, PEG, 3350 (MiraLax) 17 GM/SCOOP powderIndications :Constipation, unspecified constipation type Take 17 g by mouth Once per day. 527 g 5 03/17/20 25 Active Active Problems Problem Noted Date Diagnosed Date Other fatigue 02/14/2025 Assessment & Plan (02/14/2025 11:22 AM EDT): Blood work ordered patient will be contacted with results Follow-up with PCP Constipation 02/14/2025 Assessment & Plan (02/14/2025 11:21 AM EDT): Counseling about adding more water and fiber to his diet increase walks done today I prescribed for him Colace and MiraLAX TSH will be checked with labs Erectile dysfunction 02/14/2025 Assessment & Plan (02/14/2025 11:22 AM EDT): Labs will be checked today including testosterone he will be contacted with results Follow-up with PCP Palpitations 02/14/2025 Assessment & Plan (02/14/2025 11:20 AM EDT): TSH will be checked with labs Cardiology referral Follow-up with PCP Dyspnea on exertion 02/14/2025 Assessment & Plan (02/14/2025 11:20 AM EDT): I ordered today sleep studies, labs and refer him to cardiology Patient will be contacted with results as soon as I get them Follow-up with PCP Apneic episode 02/14/2025 Assessment & Plan (02/14/2025 11:22 AM EDT): Sleep study is ordered today Hypersomnia 02/14/2025 Assessment & Plan (02/14/2025 11:22 AM EDT): Home sleep study is ordered today Class 1 obesity due to exces s calories without serious comorbidity with body mass index (BMI) of 33.0 to 33.9 in adult 02/14/2025 Assessment & Plan (02/14/2025 11:21 AM EDT): Counseling about healthy diet and exercise done today Labs ordered today including TSH CMP and A1c Cheerleading Coach referral done today Follow-up with PCP Family history of colon cancer 08/23/2022 Overview (08/23/2022): Significant family hx of colon cancer-father, pat uncle, pat GF Referred 05/2022 to genetics and GI Vitamin D deficiency 06/13/2022 Healthcare maintenance 06/13/2022 Encounters Date Type Department Care Team Description 02/14/2025 10:45 AM EDT Office Visit [facility] [address] [place] [id number] Shakira Kitchen MD Other fatigue (Primary Dx); Constipation, unspecified constipation type; Erectile dysfunction, unspecified erectile dysfunction type; Palpitations; Dyspnea on exertion; Apneic episode; Hypersomnia; Class 1 obesity due to excess calories without serious comorbidity with body mass index (BMI) of 33.0 to 33.9 in adult; Dietary counseling; Exercise counseling 02/14/2025 Travel 02/09/2025 Telephone [facility] [address] [place] [address] [facility] Nurse Triage 11/22/2024 Telephone [facility] [address] [place] [address] [facility] No Show 11/18/2024 Telephone [facility] [address] [place] [address] [facility] chart prep from Last 3 Months Immunizations Immunization Administration Dates Next Due Influenza injectable quadrivalent preservative f ree 02/16/2021,02/29/2020 Moderna Covid-19 Vaccine 12+ 10/04/2020,09/07/19 21 Tdap 06/27/2020 Family History Medical History Relation Name Comments Colon cancer Father Colon cancer Father's Brother Hypertension Mother Colon cancer Paternal Grandfather Relation Name Status Comments Father Father's Brother Mother Paternal Grandfather Social History Tobacco Use Types Packs/Day Years Used Date Smoking Tobacco: Never Smokeless Tobacco: Never Tobacco Cessation:Counseling Given: Not Answered Alcohol Use Standard Drinks/Week Comments Never 0 [...] Orientation Straight 03/18/2022 10 :30 AM EDT Last Filed Vital Signs Vital Sign Reading [...] Mass Index 33.61 02/14/2025 10:43 AM EDT Plan of Treatment Health Maintenance Due Date Last Done Comments Disability Screening 1984 Alcohol/Substance Use Screening 1996 Family Planning (PISQ) 1999 HPV Vaccines (1 - Male 3-dos e series) 1999 Depression Screening 08/26/2024 08/27/2023, 08/27/2023 SDOH Screening 08/26/2024 08/27/2023 COVID-19 Vaccine (3 - 2024-2 6 season) 2025 10/04/2020, 09/06/2020 Influenza Vaccine (#1) 2025 , 02/29/2020 Tobacco Screening 02/14/2026 02/14/2025 Lipid Panel 08/24/2027 08/23/2022, 05/04/2021 DTaP/Tdap/Td Vaccines (2 - T d or Tdap) 06/27/2030 06/27/2020 Zoster Vaccines (1 of 2) 2034 RSV Patients and Patients Aged 60 years or older (1 - 1-dose 75+ series) 2059 HIV Screening Completed 08/23/2022, 05/04/2021 Hepatitis C Screening Completed 08/23/2022 , 05/04/2021 HIB Vaccines Aged Out No longer eligi ble based on patient's age to complete this topic Hepatitis A Vaccines Aged Out No long er eligible based on patient's age to complete this topic Hepatitis B Vaccines Discontinued IPV Vaccines Aged Out No longer eligi ble based on patient's age to complete this topic Meningococcal B Vaccine Aged Out No l onger eligible based on patient's age to complete this topic Meningococcal Vaccine Aged Out No gladis edin eligible based on patient's age to complete this topic Pneumococcal Vaccine: Pediatrics (0 to 5 Years) and At-Risk Patients (6 to 49) Years Aged Out No longer eligible based on patient's age to complete this topic RSV under 20 months Aged Out No longe r eligible based on patient's age to complete this topic Rotavirus Vaccines Aged Out No longer eligible based on patient's age to complete this topic Procedures Procedure Name Priority Date/Time Associated Diagnosis Comments HEPATITIS C AB W/REFL TO HCV RNA, QN, PCR Routine 08/23/2022 2:33 PM EDT Healthcare maintenance HIV 1/2 ANTIGEN/ANTIBODY, FOURTH GENERATION W/RFL Routine 08/23/2022 2:33 PM EDT Healthcare maintenance LIPID PANEL, STANDARD Routine 08/23/2022 2:33 PM EDT Class 1 obesity due to excess calories with body mass index (BMI) of 30.0 to 30.9 in adult, unspecified whether serious comorbidity present from Last 3 Months or Most Recently Relevant to Health Maintenance Results * Hepatitis C Antibody with Reflex to HCV, RNA, Quantitative, Real-Time PCR (08/23/2022 2:33 PM EDT) Hepatitis C Antibody NON-REACT MICAELA NON-REACT MICAELA [employer] [facility] [place] Index 0.04 <1.00 [employer] [facility] [place] [facility] Comment: HCV antibody was non-reactive. There is no laboratory evidence of HCV infection. In most cases, no further action is required. However, if recent HCV exposure is suspected, a test for HCV RNA (test code 07866) is suggested. For additional information please refer to http://[employer].ReadWave/faq/ERQ21o8 (This link is being provided for informational/ educational purposes only.) Blood Venous blood specimen / Unknown 08/23/2022 2:33 PM EDT 08/23/2022 2:33 PM EDT [facility] LAB BLOOD ORDERABLES Final Re sult [facility] [address] [facility], [facility], [place] [address] [employer] [facility] [place] [employer] [address] [place] [address] * HIV-1/2 Antigen and Antibodies, Fourth Generation, with Reflexes (08/23/2022 2:33 PM EDT) Pathologist [facility] HIV Antigen/Antibody, 4th Generation NON-REAC TIVE NON-REAC TIVE [facility] Comment: HIV-1 antigen and HIV-1/HIV-2 antibodies were not detected. There is no laboratory evidence of HIV infection. PLEASE NOTE: This information has been disclosed to you from records whose confidentiality may be protected by state law. If your state requires such protection, then the state law prohibits you from making any further disclosure of the information without the specific written consent of the person to whom it pertains, or as otherwise permitted by law. A general authorization for the release of medical or other information is NOT sufficient for this purpose. For additional information please refer to http://[employer]ReadWave/faq/OXZ939 (This link is being provided for informational/ educational purposes only.) The performance of this assay has not been clinically validated in patients less than 2 years old. Blood Venous blood specimen / Unknown 08/23/2022 2:33 PM EDT 08/23/2022 2:33 PM EDT [facility] [employer] LAB BLOOD ORDERABLES Final Re sult [facility] [address], [place] [address] [employer] [facility] [place] [employer] [address] [place] [address] * (ABNORMAL) Lipid Panel, Standard (08/23/2022 2:33 PM EDT) Cholesterol, Total 158 <200 mg/dL [employer] [facility] [place] [employer] HDL Cholesterol 39(L) > OR = 40 mg/dL [employer] [facility] [place] [employer] Triglycerides 220(H) <150 mg/dL [employer] [facility] [place] [employer] Comment: If a non-fasting specimen was collected, consider repeat triglyceride testing on a fasting specimen if clinically indicated. Asad et al. J. of Clin. Lipidol. 2015;9:129-169. LDL Cholesterol 87 mg/dL (calc) [employer] [facility] [place] [employer] Comment: Reference range: <100 Desirable range <100 mg/dL for primary prevention; <70 mg/dL for patients with CHD or diabetic patients with > or = 2 CHD risk factors. LDL-C is now calculated using the Gorge-Carmen calculation, which is a validated novel method providing better accuracy than the Friedewald equation in the estimation of LDL-C. Gorge CHAVEZ et al. DANNY. 2013;310(19): 7451-3817 (http://education.[employer].Nearway/faq/DTJ233) Chol/HDLC Ratio 4.1 <5.0 (calc) [employer] [facility] [place] [employer] Non-HDL Cholesterol 119 <130 mg/dL (calc) [facility] Comment: For patients with diabetes plus 1 major ASCVD risk factor, treating to a non-HDL-C goal of <100 mg/dL (LDL-C of <70 mg/dL) is considered a therapeutic option. Blood Venous blood specimen / Unknown 08/23/2022 2:33 PM EDT 08/23/2022 2:33 PM EDT [facility] LAB BLOOD ORDERABLES Final Re sult [facility] [address], [place] [address] [facility] [place] [facility] [address] [place] [address] from Last 3 Months or Most Recently Relevant to Health Maintenance Insurance [facility] C3 Care Teams Director Of Land Acquisition Relationship Specialty Start Date End Date Tammy Concepcion FNP [address] [place], [place] PCP - General Family Medicine 10/31/21
--- OUTSIDE RECORDS SUMMARY | 2025-02-15 09:17 | XMS_ITS | Encounter Summary ---
Author Organization [employer] Address [address] [facility] [address] [place] [address] Care Team Providers Care Land Surveyor Assistant Name Role Phone Tammy Concepcion [facility] Primary Care Provider [phone] Encounter Details Date Type Department Care Team (Latest Contact Info) Description 02/14/2025 Travel Social History Tobacco Use Types Packs/Day Years [...] AM EDT documented as of this encounter Plan of Treatment Not on file documented as of this encounter Visit Diagnoses Not on filedocumented in this encounter Additional Health Concerns Assessment Noted Time PHQ-9 Depression Total Score: 0 08/27/19 24 2:09 PM EDT documented as of this encounter Care Teams Land Surveyor Assistant Relationship Specialty Start Date End Date Tammy Concepcion FNP [address] [place] [id number] PCP - General Family Medicine 10/31/21 documented as of this encounter
[2025-02-15 11:59] LABS: MANUAL DIFF FLAG NO
[2025-02-15 12:10] LABS: Hematocrit 42.9 % (42.0-52.0); Hemoglobin 14.8 g/dl (14.0-18.0); Imm Gran Abs Auto 0.04 X10*3/uL (0.00-0.03); Imm Gran Pct Auto 0.5 % (0.0-0.4); Lymphocytes Absolute Auto 2.4 X10*3/uL (1.2-4.9); Mean Corpuscular HGB Conc 34.5 g/dl (31.0-36.0); Mean Corpuscular Hemoglobin 29.1 pg (27.0-33.0); Mean Corpuscular Volume 84.3 fL (80.0-98.0); NRBC Abs Auto 0.000 X10*3/uL (0.0-0.012); NRBC Pct Auto 0.0 /100WBC (0.0-0.2); Platelet Count 253 X10*3/uL (160-400); Red Blood Count 5.09 X10*6/uL (4.60-5.80); White Blood Count 8.6 X10*3/uL (4.8-10.8)
[2025-02-15 12:28] LABS: Hemoglobin A1C 99.7886 umol/L; Total Hemoglobin (HGBA1C) 3691.3175 umol/L
[2025-02-15 12:41] LABS: Alanine Aminotransferase 46 U/L (0-40); Albumin Level 4.8 g/dL (3.5-5.0); Alkaline Phosphatase 86 U/L (39-117); Anion Gap 13 (12-20); Aspartate Amino Transferase 33 U/L (5-37); Blood Urea Nitrogen 15 mg/dL (9-16); Calcium 9.3 mg/dL (8.4-10.2); Carbon Dioxide 27 mmol/L (22-29); Chloride 107 mmol/L (96-108); Cholesterol 183 mg/dL (<200); Estimated Glomerular Filt Rate > 60; HDL Cholesterol 35 mg/dL (>40); Potassium 4.0 mmol/L (3.3-5.1); Sodium 143 mmol/L (135-145); Total Protein 8.0 g/dL (6.5-8.0); Triglycerides 208 mg/dL (<150)
[2025-02-15 12:48] LABS: HIV Num 1 0.05 S/CO (0.00-0.99); ~HepC Num1 0.07 S/CO (0.00-0.79); ~Hepatitis C Antibody Nonreactive (Nonreactive)
[2025-02-15 13:00] LABS: Folate 13.7 ng/mL (> or = 4.0); Vitamin B12 740 pg/mL (200-900)
[2025-02-20 17:53] LABS: Testosterone, Free 47.9 pg/mL (35.0-155.0)
== END 2025-02-15 08:47 | disposition home or self-care (01) ==
LOC: HO.HHCL 08:46
PROVIDERS: PCP Internal Medicine; Visit Provider Internal Medicine
DX: Z01.84 Encounter for antibody response examination (principal); Z11.4 Encounter for screening for human immunodeficiency virus [HIV]; R53.83 Other fatigue
CPT/HCPCS: 36415; 80053; 80061; 82306; 82607; 82746; 83036; 84402; 84403; 84443; 85025; 86592; 86803; 87389